=== PATIENT | female | born 1975 | race Two or more races ===

== ENCOUNTER 2024-01-24 15:48 | Emergency (ER) | payer MEDICARE, MEDICAID, SELFPAY ==
[2024-01-24 16:05] VITALS: BP 128/88; PULSE 95; RESP 18; TEMP 37; O2SAT 99; BMI 27.3
--- NOTE | 2024-01-24 16:21 | XR_ITS ---
Examination: Foot, right, 3 views Technique: AP, oblique, lateral views foot, 3 views Date and time of exam: January 24, 2024 1629 hours INDICATIONS: Puncture injury to the foot one week ago with pain and swelling FINDINGS: No fracture or dislocation. No cortical bone destruction On the lateral view 3 mm linear opaque foreign body projecting at the plantar surface of the anterior calcaneus IMPRESSION: Positive for 3 mm linear opaque foreign body projecting at the plantar anterior surface of the calcaneus
--- NOTE | 2024-01-24 17:00 | PD.EDANKLE ---
Lower Extremity Injury RME/HPI General Chief Complaint: Ankle/Foot Injury Stated Complaint: RIGHT HEAL IMBEDDED OBJECT X WEDNESDAY; HX DIABETES Time Seen by Provider: 01/24/24 16:03 Source: patient Arrival date/time: 01/24/24 15:48 This s a 48y f hx of DM, here with concerns of retained thorn in her right heel for one week. Reported that one week ago she notice she stepped on a thorn, she was able to remove two. Patient report she was evaluated by her supervisor title in which he ordered an xray. He attempted to remove the thorn in his office prior to her ED visit, However he was unsuccessful. Reports he numbed her heel and made a small incision without successfully locating fb. NO other concern reported by patient. Mode of arrival: ambulatory Related Data Home Medications ?Medication ?Instructions ?Recorded ?Confirmed folic acid 1 mg tablet 1 mg PO QDAY #0 tabs 06/18/16 10/30/22 lamotrigine 100 mg tablet 125 mg PO QDAY 08/20/21 10/30/22 ascorbic acid (vitamin C) 500 mg 500 mg PO QDAY 07/16/22 10/30/22 tablet (Vitamin C) brexpiprazole 2 mg tablet (Rexulti) 2 mg PO QDAY 07/16/22 10/30/22 ergocalciferol (vitamin D2) 1,250 1,250 mcg PO QWEEK 07/16/22 10/30/22 mcg (50,000 unit) capsule (Vitamin D2) hydrocodone 10 mg-acetaminophen 1 tab PO Q8H PRN Pain 07/16/22 10/30/22 325 mg tablet hydrocodone bitartrate 30 mg 30 mg PO QDAY 07/16/22 10/30/22 tablet,crush resist,extended rel. 24hr (Hysingla ER) insulin aspart U-100 100 unit/mL 16 unit subcut BID 07/16/22 10/30/22 (3 mL) subcutaneous pen (Novolog FlexPen U-100 Insulin aspart) insulin glargine 100 unit/mL (3 55 unit subcut QPM 07/16/22 10/30/22 mL) subcutaneous pen (Lantus Solostar U-100 Insulin) levetiracetam 750 mg tablet 1,500 mg PO BID 07/16/22 10/30/22 (Dereck) tirzepatide 2.5 mg/0.5 mL 2.5 mg subcut QWEEK 07/16/22 10/30/22 subcutaneous pen injector (Lizzy) tizanidine 4 mg capsule 4 mg PO Q8H PRN Pain 07/16/22 10/30/22 zolpidem 10 mg tablet (Ambien) 10 mg HS 07/16/22 10/30/22 Previous Rx's ?Medication ?Instructions ?Recorded ondansetron 4 mg disintegrating 4 mg PO Q6H PRN nausea and 11/15/23 tablet vomiting #30 tabs sulfamethoxazole 800 1 tab PO BID 7 days #14 tabs 01/24/24 mg-trimethoprim 160 mg tablet (Bactrim DS) Allergies Allergy/AdvReac Type Severity Reaction Status Date / Time trazodone Allergy Severe NAUSEA Verified 01/24/24 15:49 Review of Systems Review of Systems Systems Reviewed: All systems reviewed, normal except as documented Narrative Review of Systems: Gen: No fever, no chills, no weight loss EYES: No discharge, no visual changes, no pain HEENT: No ear pain, no congestion, no sore throat PULM: No shortness of breath, no cough, no congestion CV: No chest pain, no dyspnea on exertion, no palpitations GI: No nausea, no vomiting, no diarrhea, no pain, no constipation : No frequency, no urgency,? no dysuria Musc/skel: No joint pain, no back pain Skin: No rash? Psyc: No hallucinations, no depression Heme/Lymph: No easy bleeding or bruising tendencies Neuro: No weakness, no headache ED Exam Narrative Physical exam: General: Sittiing in Exam table in no acute distress, answering questions appropriately HENT: normocephalic, atraumatic, EOMI, PERRLA, moist mucous membranes Chest: chest wall is nontender Cardiac: regular rate and rhythm, normal S1 and S2, no murmurs, rubs, or gallops, capillary refill ?2 seconds Pulmonary: clear to auscultation bilaterally, no wheezing, crackles, or rhonchi Abdominal: active bowel sounds, soft, nontender, nondistended Neuro: A&OX3, CN II-XII intact, sensation grossly intact bilaterally in UE and LE. Skin: no rashes, no ecchymosis Ext:right medial heel open sore, erythemic, ttp. no abscess formation Course Quality Measures none Orders Category Date Time Status XR foot comp RT min 3V Stat Exams 01/24/24 16:21 Completed Vital Signs Vital signs: Vital Signs Temperature 98.6 F 01/24/24 16:05 Pulse Rate 95 01/24/24 16:05 Respiratory Rate 18 01/24/24 16:05 Blood Pressure 128/88 H 01/24/24 16:05 Pulse Oximetry (%) 99 01/24/24 16:05 Oxygen Delivery Method Room Air 01/24/24 16:05 Extremity Injury, Lower MDM Narrative MDM Narrative:: Pt here with retained thorn to ER after unsuccessful removal by supervisor title. I obtained a repeat xray to have a better visualization of fb. However if appear to be very and small and deep in nature. In conjunction with patient a decision was made to not attempt to remove fb on second attmept, can allow attempt to remove as secondary intention. Advised it is an organic material with may dissolve or body will reject o its own. Started patient on Bactrim. Wound care provided, strict follow up with pcp. Patient data External records reviewed:: [facility] previous records Clinical information provided by:: patient Social determinants that could affect healthcare access:: none Patient has the following chronic illnesses:: DM How is presenting disease/condition affected by chronic disease/condition?: uneffected by Evaluation data The following diagnostics were reviewed and interpreted by me:: radiology exam(s) Lab and/or radiology exams considered but not ordered:: no Interpretation Summary: Examination: Foot, right, 3 views Technique: AP, oblique, lateral views foot, 3 views Date and time of exam: January 24, 2024 1629 hours INDICATIONS: Puncture injury to the foot one week ago with pain and swelling FINDINGS: No fracture or dislocation. No cortical bone destruction On the lateral view 3 mm linear opaque foreign body projecting at the plantar surface of the anterior calcaneus IMPRESSION: Positive for 3 mm linear opaque foreign body projecting at the plantar anterior surface of the calcaneus Medications / Prescriptions Medications or Prescriptions considered but not ordered:: no Medication administrations:: no Consultations Consultation(s) initiated? (list below): No Diagnosis Extremity Injury, Lower Differential Diagnosis: puncture wound of foot, fracture of toe and ankle fracture Most likely diagnosis given after review of the tests above:: Retained foreign body foot Admission Indicated Admission indicated?: not indicated Admission Request Was there a request for admission?: No Disposition Plan Disposition Plan: Discharge Discharge Attestation Discharge Attestation: The patient and all family members were given an opportunity to ask questions and understood the discharge instructions. Discharge instructions specifically effects, indications for sooner follow up or return to the emergency department, and the expected course of current diagnosis. Patient condition: Stable Discharge Plan Plan Patient Disposition: HOME (Self Care) Patient condition on transfer: Stable Prescriptions/Referrals Prescriptions/Med Rec: New sulfamethoxazole-trimethoprim [Bactrim DS] 800-160 mg tablet 1 tab PO BID 7 Days Qty: 14 0RF No Action folic acid 1 MG tablet 1 mg PO QDAY Qty: 0 lamotrigine 100 mg tablet 125 mg PO QDAY Patient Comments: TAKE 1 TABLET BY MOUTH EVERY DAY hydrocodone-acetaminophen 10-325 mg Tablet 1 tab PO Q8H PRN (Reason: Pain) ascorbic acid (vitamin C) [Vitamin C] 500 mg Tablet 500 mg PO QDAY ergocalciferol (vitamin D2) [Vitamin D2] 1,250 mcg (50,000 unit) Capsule 1,250 mcg PO QWEEK zolpidem [Ambien] 10 mg Tablet 10 mg HS insulin aspart U-100 [Novolog FlexPen U-100 Insulin] 100 unit/mL (3 mL) Insulin Pen 16 unit SUBCUT BID tizanidine 4 mg Capsule 4 mg PO Q8H PRN (Reason: Pain) insulin glargine [Lantus Solostar U-100 Insulin] 100 unit/mL (3 mL) Insulin Pen 55 unit SUBCUT QPM hydrocodone bitartrate [Hysingla ER] 30 mg Tablet,Oral Only,Ext.Rel.24 Hr 30 mg PO QDAY Rexulti 2 mg Tablet 2 mg PO QDAY Mounjaro 2.5 mg/0.5 mL Pen Injector 2.5 mg SUBCUT QWEEK levetiracetam [Keppra] 750 mg tablet 1,500 mg PO BID ondansetron 4 mg tablet,disintegrating 4 mg PO Q6H PRN (Reason: nausea and vomiting) Qty: 30 0RF Referrals: Rebeka Lange FNP [Primary Care Provider] - In 1 week Problem List Clinical Impression: Puncture wound of foot, Retained foreign body fragment Patient/Caregiver Discharge Instructions Discharge Activity: activity as tolerated Education Materials: ED Puncture Wound (Foot) Additional Instructions: - There is a very small linear, foreign body noted to your foot most likely a thorn as you discussed. -Will start you on oral antibiotic Keep area clean and dry dressing changes. Follow-up with your primary doctor as directed. Return to the emergency department this any worsening symptoms or change in condition. Print Language: Nigerien Stand Alone Forms: Radha Award Info., Patient Portal Info Letter MD Attestation Attestation The patient was seen by the midlevel practitioner. I, the co-signing physician, was present during the entire ER visit. While I did not physically examine the patient, I was available for consultation as needed.
== END 2024-01-24 18:31 | disposition home or self-care (01) ==
PROVIDERS: Emergency Provider Emergency Medicine; PCP Nurse Practitioner Family
DX: S91.341A Puncture wound with foreign body, right foot, initial encounter (principal); W60.XXXA Contact with nonvenomous plant thorns and spines and sharp leaves, initial encounter
CPT/HCPCS: 73630; 99283

== ENCOUNTER → 2024-02-15 | Outpatient (CLI) | payer MEDICARE, MEDICAID, SELFPAY | END | disposition home or self-care (01) | PROVIDERS: PCP Podiatrist; Referring Provider Podiatrist; Visit Provider Student in an Organized Health Care Education/Training Program | DX: S91.341A Puncture wound with foreign body, right foot, initial encounter (principal); X58.XXXA Exposure to other specified factors, initial encounter; L97.412 Non-pressure chronic ulcer of right heel and midfoot with fat layer exposed; E11.69 Type 2 diabetes mellitus with other specified complication; Z79.84 Long term (current) use of oral hypoglycemic drugs; Z79.4 Long term (current) use of insulin; G40.89 Other seizures; J45.909 Unspecified asthma, uncomplicated | CPT/HCPCS: 11042; 99213; A9270; G0463 ==

== ENCOUNTER → 2024-02-22 | Outpatient (CLI) | payer MEDICARE, MEDICAID, SELFPAY | END | disposition home or self-care (01) | LOC: SWHD 10:20 | PROVIDERS: PCP Nurse Practitioner Family; Referring Provider Nurse Practitioner Family; Visit Provider Student in an Organized Health Care Education/Training Program | DX: S91.341A Puncture wound with foreign body, right foot, initial encounter (principal); X58.XXXA Exposure to other specified factors, initial encounter; L97.412 Non-pressure chronic ulcer of right heel and midfoot with fat layer exposed; E11.69 Type 2 diabetes mellitus with other specified complication; Z79.84 Long term (current) use of oral hypoglycemic drugs; Z79.4 Long term (current) use of insulin; G40.89 Other seizures; J45.909 Unspecified asthma, uncomplicated | CPT/HCPCS: 11042; A9270 ==

== ENCOUNTER → 2024-03-07 | Outpatient (CLI) | payer MEDICARE, MEDICAID, SELFPAY | END | disposition home or self-care (01) | LOC: SWHD 08:13 | PROVIDERS: PCP Nurse Practitioner Family; Referring Provider Nurse Practitioner Family; Visit Provider Surgery | DX: S91.341A Puncture wound with foreign body, right foot, initial encounter (principal); X58.XXXA Exposure to other specified factors, initial encounter; L97.412 Non-pressure chronic ulcer of right heel and midfoot with fat layer exposed; E11.69 Type 2 diabetes mellitus with other specified complication; Z79.84 Long term (current) use of oral hypoglycemic drugs; Z79.4 Long term (current) use of insulin; G40.89 Other seizures; J45.909 Unspecified asthma, uncomplicated | CPT/HCPCS: 11042; A9270 ==

== ENCOUNTER → 2024-03-09 | Outpatient (CLI) | payer MEDICARE, MEDICAID, SELFPAY ==
[2024-03-09 08:32] LABS: Basophils # (Auto) 0.1 Thou/mm3 (0.0-0.2); Basophils % (Auto) 1 % (0-2.5); Eosinophils # (Auto) 0.1 Thou/mm3 (0.0-0.5); Eosinophils % (Auto) 1 % (0-10); Hemoglobin 14.2 g/dL (12.0-16.0); Immature Granulocytes % (Auto) 0 % (0-0); Immature Granulocytes Auto 0.01 Thou/mm3 (0.00-0.00); Lymphocytes % (Auto) 32 % (10-50); Mean Corpuscular HGB Conc 33.8 g/dl (31.0-37.0); Mean Corpuscular Hemoglobin 30.1 pg (25.0-35.0); Mean Corpuscular Volume 89 fL (80-100); Monocytes # (Auto) 0.4 Thou/mm3 (0.0-0.8); Monocytes % (Auto) 7 % (0-12); Neutrophils # (Auto) 3.7 Thou/mm3 (1.8-7.7); Neutrophils % (Auto) 59 % (37-80); Nucleated Red Blood Cell % 0 /100 WBC (0); Platelet Count 315 Thou/mm3 (140-440); RDW Standard Deviation 44.2 fL (36.4-46.3); Red Blood Count 4.72 Miln/mm3 (4.00-5.20); White Blood Count 6.2 Thou/mm3 (3.6-11.0)
[2024-03-09 08:44] LABS: Glucose Estimated Average 240 mg/dL (80-131)
[2024-03-09 08:53] LABS: Alanine Aminotransferase 69 U/L (10-49); Albumin, Serum 4.6 gm/dL (3.5-5.0); Anion Gap 11 (7-16); Aspartate Amino Transferase 26 U/L (0-34); BUN/Creatinine Ratio 10 Ratio (12-20); Bilirubin,Total 0.8 mg/dL (0.3-1.2); Blood Urea Nitrogen 7 mg/dL (9-23); Calcium 9.5 mg/dL (8.3-10.6); Calcium (Corrected) 9.5 mg/dL (8.5-10.1); Carbon Dioxide 25.4 mMol/L (20.0-31.0); Chloride 105 mMol/L (98-107); Cholesterol 108 mg/dL (132-200); Creatinine (Component) 0.7 mg/dL (0.6-1.3); Globulin 2.3 gm/dL (2.3-3.5); Glucose 144 mg/dL (74-106); HDL Cholesterol 54 mg/dL (40-60); LDL Cholesterol,Calculated 34 mg/dL (0-130); Osmolality,Calculated 282 (275-295); Potassium 3.6 mMol/L (3.4-5.1); Sodium 141 mMol/L (136-145); Total Protein 6.9 gm/dL (5.7-8.2); Triglycerides 98 mg/dL (30-150); eGFR > 60 See Note
[2024-03-09 08:54] LABS: Alkaline Phosphatase 80 U/L (46-116); Thyroid Stimulating Hormone 1.23 uIU/mL (0.55-4.78)
[2024-03-09 08:58] LABS: Vitamin B12 309 pg/mL (211-911); Vitamin D 25 Hydroxy Total 24.5 ng/mL (7.3-40.2)
[2024-03-09 09:09] LABS: Syphilis Nonreactive (Nonreactive)
== END | disposition home or self-care (01) ==
LOC: COPL 07:34
PROVIDERS: PCP Nurse Practitioner Family; Referring Provider Psychiatry & Neurology Neurology; Visit Provider Psychiatry & Neurology Neurology
DX: R55 Syncope and collapse (principal); E11.49 Type 2 diabetes mellitus with other diabetic neurological complication; R41.3 Other amnesia; E78.5 Hyperlipidemia, unspecified
CPT/HCPCS: 36415; 80053; 80061; 82306; 82607; 83036; 84439; 84443; 85025; 86780

== ENCOUNTER → 2024-03-14 | Outpatient (CLI) | payer MEDICARE, MEDICAID, SELFPAY | END | disposition home or self-care (01) | LOC: SWHD 08:02 | PROVIDERS: PCP Nurse Practitioner Family; Referring Provider Nurse Practitioner Family; Visit Provider Student in an Organized Health Care Education/Training Program | DX: S91.341A Puncture wound with foreign body, right foot, initial encounter (principal); X58.XXXA Exposure to other specified factors, initial encounter; L97.412 Non-pressure chronic ulcer of right heel and midfoot with fat layer exposed; E11.69 Type 2 diabetes mellitus with other specified complication; Z79.84 Long term (current) use of oral hypoglycemic drugs; Z79.4 Long term (current) use of insulin; G40.89 Other seizures; J45.909 Unspecified asthma, uncomplicated | CPT/HCPCS: 11042; A9270 ==

== ENCOUNTER → 2024-03-15 | Outpatient (CLI) | payer MEDICARE, MEDICAID, SELFPAY ==
--- NOTE | 2024-03-15 07:00 | XR_ITS ---
Examination: MRI of brain without intravenous contrast. MRI brain with intravenous contrast. Date and time of exam:March 15, 2024 0700 hours COMPARISON: April 12, 2012 INDICATIONS: Increasing memory loss 6 months with headache dizziness and syncopal episodes beginning 2012 Technique: Multiple axial and sagittal images of the brain to been obtained. Siemens high-resolution 1.52 Whitney short bore scanner utilized. Sagittal sections, T1 weighted images, TR 500, TE 14, are performed. Axial sections proton-density and T2-weighted images have been obtained. Inversion recovery axial images, TR 9260, TE 111, TR 2500. Diffusion weighted images, axial sections, TR 4800, TE 128, B value 1000. Axial sections, ADC map, TR 4800, TE 128. Axial and coronal images were also obtained post 16 cc gadolinium administered intravenously. Findings:: Enlargement of the sella turcica is not present. The optic chiasm and infundibular stalk are not remarkable. There is no localized enlargement of the medulla or joe. Fourth ventricle and cerebellar tonsils appear normal in position. No subacute area of hemorrhage density is seen. Fourth ventricle is midline. Mass in the cerebellopontine angle region is not evident. 7th and 8th nerve complexes exhibit symmetry Globes are symmetrical Orbital musculature including medial lateral rectus muscles do not exhibit abnormality Increased white matter signal is not prominent Effacement of the cortical sulcal markings is not identified. Mass effect upon the ventricular system is not identified. Diffusion-weighted images demonstrate no focus of restricted diffusion Contrast images demonstrate no abnormal enhancing cerebellar or cerebral lesions Impression: Negative for acute hemorrhage mass effect or midline shift No acute infarct No abnormal enhancing cerebellar or cerebral lesions
== END | disposition home or self-care (01) ==
PROVIDERS: PCP Nurse Practitioner Family; Referring Provider Psychiatry & Neurology Neurology; Visit Provider Psychiatry & Neurology Neurology
DX: R41.3 Other amnesia (principal)
CPT/HCPCS: 70553; A9579

== ENCOUNTER → 2024-03-22 | Outpatient (CLI) | payer MEDICARE, MEDICAID, SELFPAY | END | disposition home or self-care (01) | LOC: SWHD 09:33 | PROVIDERS: PCP Nurse Practitioner Family; Referring Provider Nurse Practitioner Family; Visit Provider Student in an Organized Health Care Education/Training Program | DX: S91.341A Puncture wound with foreign body, right foot, initial encounter (principal); X58.XXXA Exposure to other specified factors, initial encounter; L97.412 Non-pressure chronic ulcer of right heel and midfoot with fat layer exposed; E11.69 Type 2 diabetes mellitus with other specified complication; Z79.4 Long term (current) use of insulin; Z79.84 Long term (current) use of oral hypoglycemic drugs; G40.89 Other seizures; J45.909 Unspecified asthma, uncomplicated | CPT/HCPCS: 97597; A9270 ==

== ENCOUNTER → 2024-03-29 | Outpatient (CLI) | payer MEDICARE, MEDICAID, SELFPAY | END | disposition home or self-care (01) | LOC: SWHD 10:37 | PROVIDERS: PCP Nurse Practitioner Family; Referring Provider Nurse Practitioner Family; Visit Provider Student in an Organized Health Care Education/Training Program | DX: S91.341A Puncture wound with foreign body, right foot, initial encounter (principal); X58.XXXA Exposure to other specified factors, initial encounter; L97.412 Non-pressure chronic ulcer of right heel and midfoot with fat layer exposed; E11.69 Type 2 diabetes mellitus with other specified complication; Z79.4 Long term (current) use of insulin; Z79.84 Long term (current) use of oral hypoglycemic drugs; G40.89 Other seizures; J45.909 Unspecified asthma, uncomplicated | CPT/HCPCS: 97597; A9270 ==

== ENCOUNTER → 2024-04-05 | Outpatient (CLI) | payer MEDICARE, MEDICAID, SELFPAY | END | disposition home or self-care (01) | LOC: SWHD 09:45 | PROVIDERS: PCP Nurse Practitioner Family; Referring Provider Nurse Practitioner Family; Visit Provider Student in an Organized Health Care Education/Training Program | DX: S91.341A Puncture wound with foreign body, right foot, initial encounter (principal); X58.XXXA Exposure to other specified factors, initial encounter; L97.412 Non-pressure chronic ulcer of right heel and midfoot with fat layer exposed; E11.69 Type 2 diabetes mellitus with other specified complication; Z79.4 Long term (current) use of insulin; Z79.84 Long term (current) use of oral hypoglycemic drugs; G40.89 Other seizures; J45.909 Unspecified asthma, uncomplicated | CPT/HCPCS: 97597; A9270 ==

== ENCOUNTER → 2024-04-11 | Outpatient (CLI) | payer MEDICARE, MEDICAID, SELFPAY ==
--- NOTE | 2024-04-11 13:00 | XR_ITS ---
Examination: Screening digital mammography, bilateral Computer aided detection 3-D breast Tomosynthesis, bilateral Date and time of exam: April 11, 2024 1310 hours Comparison February 02, 2022 Indication: Screening Technique: Nonmagnified MLO, CC views of the breasts to been obtained, reconstructed from 3-D Tomosynthesis images. R2 computer aided detection program utilized for evaluation of suspicious masses and/or abnormal calcifications. 3-D Tomosynthesis images obtained. Findings: Scattered areas of fibroglandular density Benign calcifications No interval suspicious masses Impression: BI-RADS category II: Benign Findings. Recommend 1 year follow-up mammogram.
== END | disposition home or self-care (01) ==
PROVIDERS: PCP Obstetrics & Gynecology; Referring Provider Obstetrics & Gynecology; Visit Provider Obstetrics & Gynecology
DX: Z12.31 Encounter for screening mammogram for malignant neoplasm of breast (principal); R92.323 Mammographic fibroglandular density, bilateral breasts; R92.1 Mammographic calcification found on diagnostic imaging of breast
CPT/HCPCS: 77063; 77067

== ENCOUNTER → 2024-04-12 | Outpatient (CLI) | payer MEDICARE, MEDICAID, SELFPAY | END | disposition home or self-care (01) | LOC: SWHD 09:41 | PROVIDERS: PCP Nurse Practitioner Family; Referring Provider Nurse Practitioner Family; Visit Provider Student in an Organized Health Care Education/Training Program | DX: S91.341A Puncture wound with foreign body, right foot, initial encounter (principal); X58.XXXA Exposure to other specified factors, initial encounter; L97.412 Non-pressure chronic ulcer of right heel and midfoot with fat layer exposed; E11.69 Type 2 diabetes mellitus with other specified complication; Z79.4 Long term (current) use of insulin; Z79.84 Long term (current) use of oral hypoglycemic drugs; G40.89 Other seizures; J45.909 Unspecified asthma, uncomplicated | CPT/HCPCS: 97597; A9270 ==

== ENCOUNTER → 2024-04-14 | Outpatient (CLI) | payer MEDICARE, MEDICAID, SELFPAY | END | disposition home or self-care (01) | LOC: SWHD 11:09 | PROVIDERS: PCP Nurse Practitioner Family; Referring Provider Nurse Practitioner Family; Visit Provider Surgery | DX: S91.341A Puncture wound with foreign body, right foot, initial encounter (principal); X58.XXXA Exposure to other specified factors, initial encounter; L97.412 Non-pressure chronic ulcer of right heel and midfoot with fat layer exposed; E11.69 Type 2 diabetes mellitus with other specified complication; Z79.4 Long term (current) use of insulin; Z79.84 Long term (current) use of oral hypoglycemic drugs; G40.89 Other seizures; J45.909 Unspecified asthma, uncomplicated | CPT/HCPCS: 99213; A9270; G0463 ==

== ENCOUNTER → 2024-04-26 | Outpatient (CLI) | payer MEDICARE, MEDICAID, SELFPAY | END | disposition home or self-care (01) | LOC: SWHD 09:02 | PROVIDERS: PCP Nurse Practitioner Family; Referring Provider Nurse Practitioner Family; Visit Provider Student in an Organized Health Care Education/Training Program | DX: S91.341A Puncture wound with foreign body, right foot, initial encounter (principal); X58.XXXA Exposure to other specified factors, initial encounter; L97.412 Non-pressure chronic ulcer of right heel and midfoot with fat layer exposed; E11.69 Type 2 diabetes mellitus with other specified complication; Z79.4 Long term (current) use of insulin; Z79.84 Long term (current) use of oral hypoglycemic drugs; G40.89 Other seizures; J45.909 Unspecified asthma, uncomplicated | CPT/HCPCS: 17250; A9270 ==

== ENCOUNTER → 2024-05-03 | Outpatient (CLI) | payer MEDICARE, MEDICAID, SELFPAY | END | disposition home or self-care (01) | LOC: SWHD 08:59 | PROVIDERS: PCP Nurse Practitioner Family; Referring Provider Nurse Practitioner Family; Visit Provider Student in an Organized Health Care Education/Training Program | DX: S91.341A Puncture wound with foreign body, right foot, initial encounter (principal); X58.XXXA Exposure to other specified factors, initial encounter; L97.412 Non-pressure chronic ulcer of right heel and midfoot with fat layer exposed; E11.69 Type 2 diabetes mellitus with other specified complication; Z79.4 Long term (current) use of insulin; Z79.84 Long term (current) use of oral hypoglycemic drugs; G40.89 Other seizures; J45.909 Unspecified asthma, uncomplicated | CPT/HCPCS: 99213; A9270; G0463 ==

== ENCOUNTER → 2024-05-17 | Outpatient (CLI) | payer MEDICARE, MEDICAID, SELFPAY | END | disposition home or self-care (01) | LOC: SWHD 09:23 | PROVIDERS: PCP Nurse Practitioner Family; Referring Provider Nurse Practitioner Family; Visit Provider Student in an Organized Health Care Education/Training Program | DX: S91.341A Puncture wound with foreign body, right foot, initial encounter (principal); X58.XXXA Exposure to other specified factors, initial encounter; L97.412 Non-pressure chronic ulcer of right heel and midfoot with fat layer exposed; E11.69 Type 2 diabetes mellitus with other specified complication; Z79.4 Long term (current) use of insulin; Z79.84 Long term (current) use of oral hypoglycemic drugs; G40.89 Other seizures; J45.909 Unspecified asthma, uncomplicated | CPT/HCPCS: 99212; G0463 ==

== ENCOUNTER 2024-05-23 09:42 | Day surgery (SDC) | payer MEDICARE, MEDICAID, SELFPAY ==
--- NOTE | 2024-05-22 07:00 | EKG_ITS ---
[facility] Test Date: 2024-05-22 Pat Name: EVAN SINGLETON Department: Room: - Gender: Female Spread Cutter: KARIE : 1975 Requested By: Debbie Butcher Order Number: [id number] Reading MD: Debbie Butcher Measurements Intervals Terrell Rate: 83 P: 52 CA: 150 QRS: 29 QRSD: 84 T: 62 QT: 349 QTc: 412 Interpretive Statements SINUS RHYTHM Compared to ECG 07/16/2022 08:14:49 No significant changes /store/S0/[id number].pdf
[2024-05-22 09:53] LABS: Basophils # (Auto) 0.1 Thou/mm3 (0.0-0.2); Basophils % (Auto) 1 % (0-2.5); Eosinophils # (Auto) 0.1 Thou/mm3 (0.0-0.5); Eosinophils % (Auto) 1 % (0-10); Hematocrit 44.3 % (36.0-46.0); Hemoglobin 15.3 g/dL (12.0-16.0); Immature Granulocytes % (Auto) 0 % (0-0); Immature Granulocytes Auto 0.02 Thou/mm3 (0.00-0.00); Lymphocytes # (Auto) 2.5 Thou/mm3 (1.0-4.8); Lymphocytes % (Auto) 36 % (10-50); Mean Corpuscular HGB Conc 34.5 g/dl (31.0-37.0); Mean Corpuscular Hemoglobin 30.6 pg (25.0-35.0); Mean Corpuscular Volume 89 fL (80-100); Monocytes # (Auto) 0.5 Thou/mm3 (0.0-0.8); Monocytes % (Auto) 7 % (0-12); Neutrophils # (Auto) 3.9 Thou/mm3 (1.8-7.7); Neutrophils % (Auto) 55 % (37-80); Nucleated Red Blood Cell % 0 /100 WBC (0); Platelet Count 305 Thou/mm3 (140-440); RDW Standard Deviation 41.3 fL (36.4-46.3); White Blood Count 7.1 Thou/mm3 (3.6-11.0)
[2024-05-22 10:18] LABS: Partial Thromboplastin Time 26.1 Seconds (22.0-36.0); Prothrombin Time 11.4 Seconds (9.0-12.2)
[2024-05-22 10:19] LABS: Anion Gap 10 (7-16); BUN/Creatinine Ratio 14 Ratio (12-20); Blood Urea Nitrogen 13 mg/dL (9-23); Calcium 9.6 mg/dL (8.3-10.6); Carbon Dioxide 24.7 mMol/L (20.0-31.0); Chloride 105 mMol/L (98-107); Creatinine (Component) 0.9 mg/dL (0.6-1.3); Glucose 179 mg/dL (74-106); Osmolality,Calculated 283 (275-295); Potassium 3.7 mMol/L (3.4-5.1); Sodium 140 mMol/L (136-145); eGFR > 60 See Note
[2024-05-22 10:26] LABS: COVID-19 Antigen (In-House) Negative (Negative)
[2024-05-23] VITALS (14 sets, daily range): BP systolic 100–153; BP diastolic 70–99; PULSE 77–101; RESP 14–21; TEMP 36.2–36.8; O2SAT 92–100; BMI 27.2
[2024-05-23] MEDS: DIAZEPAM 5 MG TABLET PO (10:08)
--- NOTE | 2024-05-23 11:37 | PD.CARDCATH ---
Cardiac Cath Procedure Procedure Narrative Date of the procedure 05/23/2024 Title of the procedure 1. Left heart catheterization 2. Left coronary angiogram 3. Right coronary angiogram 4. Left ventriculogram 5. Conscious sedation 6. Radiographic interpretation supervision 7. Ultrasound guidence for Right radial access Indication for the procedure This is a 49-year-old female with hypertension diabetes hyperlipidemia Complains of atypical chest pain Cardiolite scan was abnormal Cardiac catheter and coronary angiogram recommended Procedure This is done in the cardiac lab under continuous electrocardiographic monitoring Intermittent blood pressure monitoring right radial arterial access obtained using modified Seldinger technique 6 [place] radial sheath was placed under ultrasound guidence TIG catheter was used for selective injection of the Left coronary artery TIG cather was used for selective injection of the Right coroanry artery TIG cather was used for LV gram Findings Hemodynamics Left ventricular systolic function is 55% Left ventricular end-diastolic pressure is 16 mmHg Gradient across the aortic valve is 0 mm gradient Coronary anatomy Right dominance Left main coronary artery is normal Left anterior descending artery is normal Diagonal vessel is showing luminal regularities Left circumflex artery is normal Obtuse marginal vessel is showing luminal regularities Right coronary artery is normal Posterior descending artery is luminal regularities Conclusion No significant coronary lesion Recommendation Continue medical management
[2024-05-23] MEDS: SODIUM CHLORIDE 0.45 % 500 ML 100 ML IV (11:45)
--- NOTE | 2024-05-23 13:30 | PC.NURSE ---
TR band removed at this time. Surgical site asymptomatic, no active bleeding, no hematoma noted on right upper extremity or around the surgical site. Capillary refill < 3 seconds. No noted changes in color or temperature on right upper extremity. Patient denies general and localized pain, no loss in sensation, no tingling or numbness felt to right upper extremity. Tagaderm and Coban wrap applied. Will continue to monitor
== END 2024-05-23 14:45 | disposition home or self-care (01) ==
PROVIDERS: PCP Physician Assistant; Referring Provider Internal Medicine; Visit Provider Internal Medicine
PROC: (CPT 93458; principal; 2024-05-23 11:00)
DX: I25.118 Atherosclerotic heart disease of native coronary artery with other forms of angina pectoris (principal); E11.9 Type 2 diabetes mellitus without complications; E78.5 Hyperlipidemia, unspecified; I10 Essential (primary) hypertension; Z01.810 Encounter for preprocedural cardiovascular examination
CPT/HCPCS: 93458; 36415; 80048; 85025; 85610; 85730; 87811; 93005; 99152; A4216; A4649; C1887; C1894; J0171; J0461; J0583; J1643; J2250; J2310; J2371; J3010; J3490; J7030; A9270; J2305

== ENCOUNTER 2024-08-31 14:17 | Emergency (ER) | payer MEDICARE, MEDICAID, SELFPAY ==
[2024-08-31 14:29] VITALS: BP 121/78; PULSE 94; RESP 18; TEMP 36.9; O2SAT 99; BMI 28.4
--- NOTE | 2024-08-31 14:32 | EDRME_ITS ---
Rapid Medical Screening Exam [facility] Arrival date/time: 08/31/24 14:17 49-year-old female insulin-dependent diabetic presents to the emergency department today for complaints of diabetic foot ulcer to the left foot. Patient reports that she saw her tubing tester today referred to the ER for osteomyelitis. Chief Complaint: Wound/Laceration Vital signs: Vital Signs Temperature 98.5 F 08/31/24 14:29 Pulse Rate 94 08/31/24 14:29 Respiratory Rate 18 08/31/24 14:29 Blood Pressure 121/78 08/31/24 14:29 Pulse Oximetry (%) 99 08/31/24 14:29 Oxygen Delivery Method Room Air 08/31/24 14:29
--- NOTE | 2024-08-31 14:40 | XR_ITS ---
Examination: Foot, left, 3 views Technique: AP, oblique, lateral views foot, 3 views Date and time of exam: August 31, 2024 1452 hours INDICATIONS: Nonhealing ulcer first digit one month FINDINGS: Prominent bone destruction proximal aspect distal phalanx first digit and distal aspect proximal phalanx first digit on the medial side Old fractures fourth and fifth metatarsals IMPRESSION: Significant osteomyelitis proximal and distal phalanges first digit
[2024-08-31 15:08] LABS: Lactate (Lactic Acid) 1.1 mMol/L (0.4-2.0)
[2024-08-31 15:11] LABS: Basophils # (Auto) 0.1 Thou/mm3 (0.0-0.2); Basophils % (Auto) 1 % (0-2.5); Eosinophils # (Auto) 0.1 Thou/mm3 (0.0-0.5); Eosinophils % (Auto) 1 % (0-10); Hematocrit 42.9 % (36.0-46.0); Hemoglobin 14.6 g/dL (12.0-16.0); Immature Granulocytes Auto 0.04 Thou/mm3 (0.00-0.00); Lymphocytes # (Auto) 3.5 Thou/mm3 (1.0-4.8); Lymphocytes % (Auto) 32 % (10-50); Mean Corpuscular HGB Conc 34.0 g/dl (31.0-37.0); Mean Corpuscular Hemoglobin 30.6 pg (25.0-35.0); Mean Corpuscular Volume 90 fL (80-100); Monocytes # (Auto) 0.7 Thou/mm3 (0.0-0.8); Monocytes % (Auto) 7 % (0-12); Neutrophils # (Auto) 6.4 Thou/mm3 (1.8-7.7); Neutrophils % (Auto) 59 % (37-80); Nucleated Red Blood Cell # 0.00 Thou/mm3 (0.00-0.00); Nucleated Red Blood Cell % 0 /100 WBC (0); Platelet Count 349 Thou/mm3 (140-440); RDW Standard Deviation 42.0 fL (36.4-46.3); Red Blood Count 4.77 Miln/mm3 (4.00-5.20); White Blood Count 10.8 Thou/mm3 (3.6-11.0)
[2024-08-31 15:24] LABS: INR 1.0 (0.9-1.3); Partial Thromboplastin Time 27.1 Seconds (22.0-36.0); Prothrombin Time 10.6 Seconds (9.0-12.2)
[2024-08-31 15:37] LABS: Alanine Aminotransferase 57 U/L (10-49); Albumin, Serum 4.6 gm/dL (3.5-5.0); Albumin/Globulin Ratio 1.6 (1.2-2.2); Alkaline Phosphatase 85 U/L (46-116); Anion Gap 10 (7-16); Aspartate Amino Transferase 34 U/L (0-34); BUN/Creatinine Ratio 14 Ratio (12-20); Bilirubin,Total 0.4 mg/dL (0.3-1.2); Blood Urea Nitrogen 13 mg/dL (9-23); C-Reactive Protein 0.8 mg/dL (0.0-0.9); Calcium 9.2 mg/dL (8.3-10.6); Calcium (Corrected) 9.2 mg/dL (8.5-10.1); Carbon Dioxide 23.9 mMol/L (20.0-31.0); Chloride 108 mMol/L (98-107); Creatinine (Component) 0.9 mg/dL (0.6-1.3); Estimated Creatinine Clearance 78.8 mL/min (>60); Globulin 2.9 gm/dL (2.3-3.5); Glucose 134 mg/dL (74-106); Osmolality,Calculated 285 (275-295); Potassium 3.5 mMol/L (3.4-5.1); Procalcitonin 0.10 ng/ml (0.0-0.49); Sodium 142 mMol/L (136-145); Total Protein 7.5 gm/dL (5.7-8.2); eGFR > 60 See Note
--- NOTE | 2024-08-31 15:48 | PD.EDWOUND ---
ED Wound/Laceration-RME/HPI General Chief Complaint: Wound/Laceration Stated Complaint: Left great toe ulcer, infection is in the bone Time Seen by Provider: 08/31/24 15:32 Arrival date/time: 08/31/24 14:17 RME / HPI RME / HPI narrative: 49-year-old female insulin-dependent diabetic presents to the emergency department today for complaints of diabetic foot ulcer to the left great toe, has been ongoing for more than a month, followed by dining room host. Patient reports that she saw her dining room host today referred to the ER for osteomyelitis. Denies any fever patient is ambulatory currently not taking any antibiotic. Related Data Home Medications ?Medication ?Instructions ?Recorded ?Confirmed folic acid 1 mg tablet 1 mg PO QDAY #0 tabs 06/18/16 05/23/24 lamotrigine 100 mg tablet 125 mg PO QDAY 08/20/21 05/23/24 ascorbic acid (vitamin C) 500 mg 500 mg PO QDAY 07/16/22 05/23/24 tablet (Vitamin C) brexpiprazole 2 mg tablet (Rexulti) 2 mg PO QDAY 07/16/22 05/23/24 ergocalciferol (vitamin D2) 1,250 1,250 mcg PO QWEEK 07/16/22 05/23/24 mcg (50,000 unit) capsule (Vitamin D2) hydrocodone bitartrate 30 mg 30 mg PO QDAY 07/16/22 05/23/24 tablet,crush resist,extended rel. 24hr (Hysingla ER) insulin glargine 100 unit/mL (3 55 unit subcut QPM 07/16/22 05/23/24 mL) subcutaneous pen (Lantus Solostar U-100 Insulin) tirzepatide 2.5 mg/0.5 mL 12.5 mg subcut QWEEK 07/16/22 05/23/24 subcutaneous pen injector (Lizzy) tizanidine 4 mg capsule 4 mg PO Q8H PRN Pain 07/16/22 05/23/24 zolpidem 10 mg tablet (Ambien) 12.5 mg PO HS 07/16/22 05/23/24 dapagliflozin propanediol 10 mg 10 mg PO QDAY 05/23/24 05/23/24 tablet (Farxiga) duloxetine 60 mg capsule,delayed 60 mg PO DAILY 05/23/24 05/23/24 release ferrous sulfate 325 mg (65 mg 325 mg PO DAILY 05/23/24 05/23/24 iron) tablet hydrocodone 7.5 mg-acetaminophen 0.5 tab PO [id number] PRN pain 05/23/24 05/23/24 325 mg tablet levetiracetam 500 mg tablet 1,500 mg PO BID 05/23/24 05/23/24 (Keppra) lisinopril 2.5 mg tablet 2.5 mg PO QDAY 05/23/24 05/23/24 metformin 500 mg tablet 1,000 mg PO DAILY 05/23/24 05/23/24 Held on 05/23/24. Instructions: Resume on 05/25/24. START TAKING THIS MEDICATION AGAIN ON THIS DATE AT YOUR USUAL TIME AND FREQUENCY prazosin 1 mg capsule 1 mg PO QDAY 05/23/24 05/23/24 sennosides 8.6 mg-docusate sodium 2 tab-cap PO DAILY 05/23/24 05/23/24 50 mg tablet (Senexon-S) Previous Rx's ?Medication ?Instructions ?Recorded doxycycline hyclate 100 mg tablet 100 mg PO BID #28 tabs 08/31/24 pentoxifylline 400 mg 400 mg PO TID #30 tabs 08/31/24 tablet,extended release Allergies Allergy/AdvReac Type Severity Reaction Status Date / Time trazodone Allergy Severe itchy Verified 08/31/24 14:22 Review of Systems Review of Systems Narrative Review of Systems: Review of system reviewed and within normal limits except mentioned in HPI ED Exam Narrative Physical exam: VITAL SIGNS: Reviewed. GENERAL APPEARANCE: Alert and interactive, follows commands, no acute distress, HEAD AND FACE: Non-traumatic. ENT: PERRL, pink conjunctivitis, eyelid no trauma, Mucous membrane moist. NECK: Supple, nontender, no nuchal rigidity. CHEST: No tenderness, no crepitus, no paradoxical movement, no retractions. LUNGS: Clear, well ventilated, symmetric, no rales, no wheezing, no ronchi, no stridor, good breath sounds bilaterally. HEART: Regular rate, regular rhythm, no murmur, no gallops. ABDOMEN: Soft, positive bowel sounds, nondistended, no guarding, nontender, no rebound, no masses, RECTAL: Deferred. GENITAL: Deferred. NEUROLOGICAL: Gross motor function intact sensory function intact, Appropriate for age. MUSCULOSKELETAL: low back nontender, full range of motion. EXTREMITIES: Chronic wound with serosanguineous drainage lateral aspect of the great toe left mild redness noted no redness noted on the dorsum of the foot, nontender, full range of motion. SKIN: Color pink, dry, no rash, no lacerations, no abrasions, no contusions. LYMPHATICS: Deferred. Course Quality Measures none Orders Category Date Time Status XR foot comp LT min 3V Stat Exams 08/31/24 14:40 Completed Blood Culture (Lab) Stat Lab 08/31/24 14:45 Received CBC Stat Lab 08/31/24 14:40 Results CMP [Comprehensive Metabolic Panel] Stat Lab 08/31/24 14:40 Completed CRP [C-Reactive Protein] Stat Lab 08/31/24 14:40 Completed ESR [Sed Rate (ESR)] Stat Lab 08/31/24 14:40 Results Lactic Acid [Lactate (Lactic Acid)] Stat Lab 08/31/24 14:40 Completed PT [Prothrombin Time with INR] Stat Lab 08/31/24 14:40 Completed PTT [Partial Thromboplastin Time] Stat Lab 08/31/24 14:40 Completed Procalcitonin Stat Lab 08/31/24 14:40 Completed Clindamycin Vial [Cleocin vial] Med 08/31/24 15:47 Once 600 mg IM X1 ONE Vital Signs Vital signs: Vital Signs Temperature 98.5 F 08/31/24 14:29 Pulse Rate 94 08/31/24 14:29 Respiratory Rate 18 08/31/24 14:29 Blood Pressure 121/78 08/31/24 14:29 Pulse Oximetry (%) 99 08/31/24 14:29 Oxygen Delivery Method Room Air 08/31/24 14:29 Wound / Laceration MDM Narrative MDM Narrative:: 49-year-old female insulin-dependent diabetic presents to the emergency department today for complaints of diabetic foot ulcer to the left great toe, has been ongoing for more than a month, followed by dining room host. Patient reports that she saw her dining room host today referred to the ER for osteomyelitis. Denies any fever patient is ambulatory currently not taking any antibiotic. Laboratory workup all came back unremarkable no leukocytosis noted, x-ray of the foot showed chronic osteomyelitis proximal and distal phalanx left great toe. Wound cleansed with NS and sterile dressing applied. Patient was given clindamycin IM. Case discussed with patient's dining room host, Dr. Fontenot, and told me that patient can be discharged home on p.o. antibiotic, anyway patient will see air conditioning specialist in 7 days. Patient stable for discharge home. Patient data External records reviewed:: None Clinical information provided by:: patient Social determinants that could affect healthcare access:: none Patient has the following chronic illnesses:: Diabetes mellitus How is presenting disease/condition affected by chronic disease/condition?: exacerbated by Evaluation data The following diagnostics were reviewed and interpreted by me:: lab results and radiology exam(s) Lab and/or radiology exams considered but not ordered:: None Interpretation Summary: See results MDM Medications / Prescriptions Medications or Prescriptions considered but not ordered:: None Medication administrations:: Clindamycin IM Consultations Consultation(s) initiated? (list below): Yes Consultation #1 (Physician, Specialty, Details): I consulted patient's dining room host, Dr. Fontenot, discussed the case. Thank you Dr. Diagnosis Wound Differential Diagnosis: abscess Most likely diagnosis given after review of the tests above:: Chronic osteomyelitis left great toe, chronic wound left great toe Admission Indicated Admission indicated?: not indicated Admission Request Was there a request for admission?: No Disposition Plan Disposition Plan: Discharge Discharge Attestation Discharge Attestation: The patient was given an opportunity to ask questions and understood the discharge instructions. Discharge instructions specifically effects, indications for sooner follow up or return to the emergency department, and the expected course of current diagnosis. Patient condition: Stable Discharge Plan Plan Patient Disposition: HOME (Self Care) Discharge Disposition comment: Stable Prescriptions/Referrals Prescriptions/Med Rec: New doxycycline hyclate 100 mg tablet 100 mg PO BID Qty: 28 0RF pentoxifylline 400 mg tablet extended release 400 mg PO TID Qty: 30 0RF Rx Instructions: must administer with a meal/food No Action folic acid 1 MG tablet 1 mg PO QDAY Qty: 0 lamotrigine 100 mg tablet 125 mg PO QDAY Patient Comments: TAKE 1 TABLET BY MOUTH EVERY DAY hydrocodone-acetaminophen 7.5-325 mg tablet 0.5 tab PO [id number] PRN (Reason: pain) Patient Comments: TAKE 1/2 TABLET BY MOUTH EVERY 6 HOURS NEEDED metformin 500 mg tablet 1,000 mg PO DAILY Patient Comments: TAKE 2 TABLETS BY MOUTH DAILY dapagliflozin propanediol [Farxiga] 10 mg tablet 10 mg PO QDAY levetiracetam [Keppra] 500 mg tablet 1,500 mg PO BID prazosin 1 mg capsule 1 mg PO QDAY Patient Comments: TAKE 1 CAPSULE BY MOUTH EVERY DAY lisinopril 2.5 mg tablet 2.5 mg PO QDAY ferrous sulfate 325 mg (65 mg iron) tablet 325 mg PO DAILY Patient Comments: TAKE 1 TABLET BY MOUTH DAILY WITH VITAMIN C duloxetine 60 mg capsule,delayed release(DR/EC) 60 mg PO DAILY Patient Comments: TAKE 1 CAPSULE BY MOUTH EVERY DAY sennosides-docusate sodium [Senexon-S] 8.6-50 mg tablet 2 tab-cap PO DAILY Patient Comments: TAKE 2 TABLETS BY MOUTH EVERY DAY ascorbic acid (vitamin C) [Vitamin C] 500 mg Tablet 500 mg PO QDAY ergocalciferol (vitamin D2) [Vitamin D2] 1,250 mcg (50,000 unit) Capsule 1,250 mcg PO QWEEK zolpidem [Ambien] 10 mg Tablet 12.5 mg PO HS tizanidine 4 mg Capsule 4 mg PO Q8H PRN (Reason: Pain) insulin glargine [Lantus Solostar U-100 Insulin] 100 unit/mL (3 mL) Insulin Pen 55 unit SUBCUT QPM hydrocodone bitartrate [Hysingla ER] 30 mg Tablet,Oral Only,Ext.Rel.24 Hr 30 mg PO QDAY Rexulti 2 mg Tablet 2 mg PO QDAY Mounjaro 2.5 mg/0.5 mL Pen Injector 12.5 mg SUBCUT QWEEK Referrals: Valentine Edmondson FNP [Primary Care Provider] - In 1 week Problem List Clinical Impression: Chronic wound of extremity, Osteomyelitis of great toe Patient/Caregiver Discharge Instructions Discharge Activity: activity as tolerated Education Materials: Osteomyelitis Dc Additional Instructions: Thank you for the opportunity for serving you today. You are stable for discharged . You are advised to: Follow-up with your wound care doctor or specialist next week Return to ED for worsening of symptoms Increase oral fluids Take medication as prescribed Wear your Ortho shoe until cleared by air conditioning specialist and podiatry Continue daily dressing and applied antibiotic that your podiatry prescribed Print Language: Tamazight Stand Alone Forms: Radha Award Info., Patient Portal Info Letter PA/SITE MEDICAL DIRECTOR Supervising Physician PA/SITE MEDICAL DIRECTOR Supervising Physician: MD Yari
[2024-08-31] MEDS: CLINDAMYCIN PHOS INJ 150 MG/ML VIAL 6 ML 600 MG IM (16:31)
[2024-08-31 16:34] VITALS: PULSE 70; RESP 18; TEMP 37.2; O2SAT 98
[2024-08-31 16:40] LABS: Sed Rate (ESR) 15 mm/hr (0-30)
== END 2024-08-31 16:35 | disposition home or self-care (01) ==
PROVIDERS: Nurse Practitioner Primary Care; Emergency Provider Emergency Medicine; PCP Student in an Organized Health Care Education/Training Program
DX: E11.621 Type 2 diabetes mellitus with foot ulcer (principal); E11.69 Type 2 diabetes mellitus with other specified complication; M86.8X7 Other osteomyelitis, ankle and foot
CPT/HCPCS: 36415; 73630; 80053; 83605; 84145; 85025; 85610; 85652; 85730; 86140; 87040; 96372; 99284; J0736

== ENCOUNTER → 2024-09-07 | Outpatient (CLI) | payer MEDICARE, MEDICAID, SELFPAY | END | disposition home or self-care (01) | PROVIDERS: Referring Provider Student in an Organized Health Care Education/Training Program; Visit Provider Student in an Organized Health Care Education/Training Program | DX: E11.621 Type 2 diabetes mellitus with foot ulcer (principal) | CPT/HCPCS: 87070; 87205 ==

== ENCOUNTER → 2024-09-07 | Outpatient (CLI) | payer MEDICARE, MEDICAID, SELFPAY | END | disposition home or self-care (01) | PROVIDERS: PCP Student in an Organized Health Care Education/Training Program; Referring Provider Student in an Organized Health Care Education/Training Program; Visit Provider Student in an Organized Health Care Education/Training Program | DX: E11.621 Type 2 diabetes mellitus with foot ulcer (principal); L97.525 Non-pressure chronic ulcer of other part of left foot with muscle involvement without evidence of necrosis; E11.69 Type 2 diabetes mellitus with other specified complication; Z79.4 Long term (current) use of insulin; Z79.84 Long term (current) use of oral hypoglycemic drugs; J45.909 Unspecified asthma, uncomplicated; G40.89 Other seizures; I49.9 Cardiac arrhythmia, unspecified | CPT/HCPCS: 97597; 99214; A9270; G0463 ==

== ENCOUNTER → 2024-09-14 | Outpatient (CLI) | payer MEDICARE, MEDICAID, SELFPAY | END | disposition home or self-care (01) | LOC: SWHD 07:59 | PROVIDERS: PCP Student in an Organized Health Care Education/Training Program; Referring Provider Student in an Organized Health Care Education/Training Program; Visit Provider Student in an Organized Health Care Education/Training Program | DX: E11.621 Type 2 diabetes mellitus with foot ulcer (principal); L97.525 Non-pressure chronic ulcer of other part of left foot with muscle involvement without evidence of necrosis; E11.69 Type 2 diabetes mellitus with other specified complication; Z79.4 Long term (current) use of insulin; Z79.84 Long term (current) use of oral hypoglycemic drugs; J45.909 Unspecified asthma, uncomplicated; G40.89 Other seizures; I49.9 Cardiac arrhythmia, unspecified | CPT/HCPCS: 11042; A9270 ==

== ENCOUNTER → 2024-09-20 | Outpatient (CLI) | payer MEDICARE, MEDICAID, SELFPAY | END | disposition home or self-care (01) | LOC: SWHD 09:53 | PROVIDERS: PCP Student in an Organized Health Care Education/Training Program; Referring Provider Student in an Organized Health Care Education/Training Program; Visit Provider Student in an Organized Health Care Education/Training Program | DX: E11.621 Type 2 diabetes mellitus with foot ulcer (principal); L97.522 Non-pressure chronic ulcer of other part of left foot with fat layer exposed; E11.69 Type 2 diabetes mellitus with other specified complication; Z79.4 Long term (current) use of insulin; Z79.84 Long term (current) use of oral hypoglycemic drugs; J45.909 Unspecified asthma, uncomplicated; G40.89 Other seizures; I49.9 Cardiac arrhythmia, unspecified | CPT/HCPCS: 11042; A9270 ==

== ENCOUNTER → 2024-09-21 | Outpatient (CLI) | payer MEDICARE, MEDICAID, SELFPAY ==
[2024-09-21 08:48] LABS: Basophils # (Auto) 0.1 Thou/mm3 (0.0-0.2); Basophils % (Auto) 1 % (0-2.5); Eosinophils # (Auto) 0.1 Thou/mm3 (0.0-0.5); Eosinophils % (Auto) 2 % (0-10); Hematocrit 45.3 % (36.0-46.0); Hemoglobin 15.2 g/dL (12.0-16.0); Immature Granulocytes Auto 0.04 Thou/mm3 (0.00-0.00); Lymphocytes # (Auto) 3.3 Thou/mm3 (1.0-4.8); Lymphocytes % (Auto) 39 % (10-50); Mean Corpuscular HGB Conc 33.6 g/dl (31.0-37.0); Mean Corpuscular Hemoglobin 30.0 pg (25.0-35.0); Mean Corpuscular Volume 90 fL (80-100); Monocytes # (Auto) 0.6 Thou/mm3 (0.0-0.8); Monocytes % (Auto) 7 % (0-12); Neutrophils # (Auto) 4.4 Thou/mm3 (1.8-7.7); Neutrophils % (Auto) 52 % (37-80); Nucleated Red Blood Cell # 0.00 Thou/mm3 (0.00-0.00); Nucleated Red Blood Cell % 0 /100 WBC (0); Platelet Count 346 Thou/mm3 (140-440); RDW Standard Deviation 42.5 fL (36.4-46.3); Red Blood Count 5.06 Miln/mm3 (4.00-5.20); White Blood Count 8.5 Thou/mm3 (3.6-11.0)
[2024-09-21 08:58] LABS: Anion Gap 7 (7-16); BUN/Creatinine Ratio 11 Ratio (12-20); Blood Urea Nitrogen 11 mg/dL (9-23); Calcium 9.3 mg/dL (8.3-10.6); Carbon Dioxide 24.8 mMol/L (20.0-31.0); Chloride 106 mMol/L (98-107); Creatinine (Component) 1.0 mg/dL (0.6-1.3); Glucose 147 mg/dL (74-106); Osmolality,Calculated 278 (275-295); Potassium 4.2 mMol/L (3.4-5.1); Sodium 138 mMol/L (136-145); eGFR > 60 See Note
[2024-09-21 09:00] LABS: INR 1.0 (0.9-1.3); Partial Thromboplastin Time 26.8 Seconds (22.0-36.0); Prothrombin Time 11.3 Seconds (9.0-12.2)
== END | disposition home or self-care (01) ==
PROVIDERS: PCP Student in an Organized Health Care Education/Training Program; Referring Provider Internal Medicine; Visit Provider Internal Medicine
DX: I25.10 Atherosclerotic heart disease of native coronary artery without angina pectoris (principal); I48.91 Unspecified atrial fibrillation
CPT/HCPCS: 36415; 80048; 85025; 85610; 85730

== ENCOUNTER → 2024-09-28 | Outpatient (CLI) | payer MEDICARE, MEDICAID, SELFPAY | END | disposition home or self-care (01) | LOC: SWHD 08:02 | PROVIDERS: PCP Student in an Organized Health Care Education/Training Program; Referring Provider Student in an Organized Health Care Education/Training Program; Visit Provider Student in an Organized Health Care Education/Training Program | DX: E11.621 Type 2 diabetes mellitus with foot ulcer (principal); L97.522 Non-pressure chronic ulcer of other part of left foot with fat layer exposed; E11.69 Type 2 diabetes mellitus with other specified complication; Z79.4 Long term (current) use of insulin; Z79.84 Long term (current) use of oral hypoglycemic drugs; J45.909 Unspecified asthma, uncomplicated; G40.89 Other seizures; I49.9 Cardiac arrhythmia, unspecified | CPT/HCPCS: 97597; A9270 ==

== ENCOUNTER → 2024-10-05 | Outpatient (CLI) | payer MEDICARE, MEDICAID, SELFPAY | END | disposition home or self-care (01) | LOC: SWHD 08:02 | PROVIDERS: PCP Student in an Organized Health Care Education/Training Program; Referring Provider Student in an Organized Health Care Education/Training Program; Visit Provider Student in an Organized Health Care Education/Training Program | DX: E11.621 Type 2 diabetes mellitus with foot ulcer (principal); L97.521 Non-pressure chronic ulcer of other part of left foot limited to breakdown of skin; E11.69 Type 2 diabetes mellitus with other specified complication; Z79.4 Long term (current) use of insulin; Z79.84 Long term (current) use of oral hypoglycemic drugs; J45.909 Unspecified asthma, uncomplicated; G40.89 Other seizures; I49.9 Cardiac arrhythmia, unspecified | CPT/HCPCS: 97597; A9270 ==

== ENCOUNTER → 2024-10-19 | Outpatient (CLI) | payer MEDICARE, MEDICAID, SELFPAY | END | disposition home or self-care (01) | LOC: SWHD 07:59 | PROVIDERS: PCP Student in an Organized Health Care Education/Training Program; Referring Provider Student in an Organized Health Care Education/Training Program; Visit Provider Student in an Organized Health Care Education/Training Program | DX: E11.621 Type 2 diabetes mellitus with foot ulcer (principal); L97.521 Non-pressure chronic ulcer of other part of left foot limited to breakdown of skin; E11.69 Type 2 diabetes mellitus with other specified complication; Z79.4 Long term (current) use of insulin; Z79.84 Long term (current) use of oral hypoglycemic drugs; J45.909 Unspecified asthma, uncomplicated; G40.89 Other seizures; I49.9 Cardiac arrhythmia, unspecified | CPT/HCPCS: 99213; A9270; G0463 ==

== ENCOUNTER → 2024-11-09 | Outpatient (CLI) | payer MEDICARE, MEDICAID, SELFPAY ==
[2024-11-09 11:25] LABS: Basophils # (Auto) 0.1 Thou/mm3 (0.0-0.2); Basophils % (Auto) 1 % (0-2.5); Eosinophils # (Auto) 0.1 Thou/mm3 (0.0-0.5); Eosinophils % (Auto) 1 % (0-10); Hematocrit 45.5 % (36.0-46.0); Hemoglobin 15.7 g/dL (12.0-16.0); Immature Granulocytes Auto 0.02 Thou/mm3 (0.00-0.00); Lymphocytes # (Auto) 3.0 Thou/mm3 (1.0-4.8); Lymphocytes % (Auto) 40 % (10-50); Mean Corpuscular HGB Conc 34.5 g/dl (31.0-37.0); Mean Corpuscular Hemoglobin 30.8 pg (25.0-35.0); Mean Corpuscular Volume 89 fL (80-100); Monocytes # (Auto) 0.5 Thou/mm3 (0.0-0.8); Monocytes % (Auto) 7 % (0-12); Neutrophils # (Auto) 3.8 Thou/mm3 (1.8-7.7); Neutrophils % (Auto) 50 % (37-80); Nucleated Red Blood Cell # 0.00 Thou/mm3 (0.00-0.00); Nucleated Red Blood Cell % 0 /100 WBC (0); Platelet Count 348 Thou/mm3 (140-440); RDW Standard Deviation 43.8 fL (36.4-46.3); Red Blood Count 5.09 Miln/mm3 (4.00-5.20); White Blood Count 7.6 Thou/mm3 (3.6-11.0)
[2024-11-09 11:30] LABS: INR 1.0 (0.9-1.3); Partial Thromboplastin Time 24.8 Seconds (22.0-36.0); Prothrombin Time 10.9 Seconds (9.0-12.2)
[2024-11-09 11:37] LABS: Anion Gap 10 (7-16); BUN/Creatinine Ratio 11 Ratio (12-20); Blood Urea Nitrogen 10 mg/dL (9-23); Calcium 9.3 mg/dL (8.3-10.6); Carbon Dioxide 25.8 mMol/L (20.0-31.0); Chloride 105 mMol/L (98-107); Creatinine (Component) 0.9 mg/dL (0.6-1.3); Glucose 186 mg/dL (74-106); Osmolality,Calculated 285 (275-295); Potassium 3.6 mMol/L (3.4-5.1); Sodium 141 mMol/L (136-145); eGFR > 60 See Note
== END | disposition home or self-care (01) ==
LOC: COPL 09:53
PROVIDERS: PCP Student in an Organized Health Care Education/Training Program; Referring Provider Internal Medicine; Visit Provider Internal Medicine
DX: I25.10 Atherosclerotic heart disease of native coronary artery without angina pectoris (principal); I48.91 Unspecified atrial fibrillation
CPT/HCPCS: 36415; 80048; 85025; 85610; 85730